=== PATIENT | male | born 1990 | race Caucasian/White ===

== ENCOUNTER 2020-08-19 06:32 | Emergency (ER) | payer OTHER, SELFPAY ==
[2020-08-19 06:33] VITALS: BP 154/94; PULSE 60; RESP 18; TEMP 36.1; O2SAT 97; BMI 39.1
--- NOTE | 2020-08-19 07:12 | EX.ED.VIS.EY ---
HPI History of Present Illness Chief Complaint: Eye Problem Informant: patient Narrative Narrative: Patient is a 29-year-old male presenting with left eye pain. Patient was using a Sukumar candle last night when he felt something go into his left eye. He states he was wearing his glasses at the time. States he feels like a piece of sand flew into his eye. He tried to flush it out immediately and then again this morning. When he continued to have foreign body sensation in his eye he came to emergency room. Denies any change in his vision. He has tearing. He believes his tetanus is up-to-date. No other complaints at this time. He does not wear any contact lenses. PFSH PFSH Allergy/AdvReac Type Severity Reaction Status Date / Time codeine AdvReac Vomiting Verified 08/19/20 06:35 Social History Smoking Status: Former smoker ROS ROS ED Constitutional Constitutional ED: Denies chills or fever(s) Eyes Eyes: Reports other Details: Left eye pain, foreign body sensation of the left eye ; Denies change in vision ENT ENT ED: Denies ear pain or sore throat Cardiovascular Cardiovascular: Denies chest pain Respiratory/Chest Respiratory/Chest: Denies dyspnea Gastrointestinal Gastrointestinal: Denies nausea or vomiting Musculoskeletal Musculoskeletal: Denies myalgias Integumentary Denies rash Neurologic Neurologic: Denies headache(s) EXAM Physical Exam Const Vital Signs: 08/19/20 06:33 Temperature 96.9 F L Temperature Source Temporal Pulse Rate 60 Respiratory Rate 18 Blood Pressure 154/94 H Blood Pressure Mean 114 Pulse Ox 97 Oxygen Delivery Method Room Air Positive well nourished and well developed General Appearance ED: well developed HEENT atraumatic Nose: external nose normal Eyes Periorbital: periorbital findings normal Eyelid: eyelids normal Conjunctiva: conjunctiva abnormal left (Tearing but no abnormal discharge) Details: injection and other Cornea: cornea abnormal Positive for left Cornea - Left Eye: Positive for abrasion and foreign body (sand under eyelid ) and fluorescein used Pupil: PERRL EOM: EOM abnormal Direct Ophthalmoscopy: normal light reflex Slit Lamp: slit lamp exam performed with fluorescein Neck supple Resp normal respiratory effort Cardio regular rate and regular rhythm Neuro oriented x3 and CN's II-XII intact bilaterally Sensorium / Orientation: alert Skin Lesions: no lesions Rashes: no rashes MDM MDM MDM Narrative Medical decision making narrative: Patient evaluated for pain to his left eye. He appears nontoxic and in no acute distress however he does appear uncomfortable secondary to irritation of his left eye. Patient does have abrasions noted to his cornea on fluorescein exam. When his eyelid is inverted I did find a small speck of sand. I suspect this is the culprit. Patient is treated symptomatically with tetracaine in the ER and started on erythromycin ointment. He is referred to ophthalmology for outpatient follow-up. He is counseled to avoid contact lenses (which she does not wear normally) will while his eye is healing. He is counseled on return precautions. Impression 1. Foreign body to the left eye 2. Corneal abrasion to the left eye Discharge Plan Triage Chief Complaint: Eye Problem ED Provider: Lisa Curtis Dx/Rx/DC Orders Instructions: ED Corneal Abrasion, ED Corneal Foreign Body, Removed Primary Care Provider: Care Physician,No Primary Referrals: Helder Rivera MD [STAFF PHYSICIAN] - Care Physician,No Primary [Primary Care Provider] - Disposition Disposition: Home, Self Care Discharge Date/Time: 08/19/20 08:38
[2020-08-19] MEDS: Fluorescein 1 MG STRIP 1 STRIP OPHTHALMIC (08:29)
[2020-08-19] MEDS: Tetracaine 0.5% Ophthalmic Bottle OPHTHALMIC (08:30)
[2020-08-19 08:36] VITALS: PULSE 71; RESP 16
--- NOTE | 2020-08-19 08:37 | ED.RN ---
THIS NURSE REVIEWED D/C INSTRUCTIONS WITH PT. PT VERBALIZED UNDERSTANDING OF INSTRUCTIONS. PT INFORMED THAT I NEEDED TO GET HIM SOME MEDICATION AND I WOULD BE RIGHT BACK. WHEN I RETURNED TO THE ROOM THE PT WAS GONE.
== END 2020-08-19 08:38 | disposition home or self-care (01) ==
PROVIDERS: Emergency Provider Emergency Medicine
DX: S05.02XA Injury of conjunctiva and corneal abrasion without foreign body, left eye, initial encounter (principal); T15.92XA Foreign body on external eye, part unspecified, left eye, initial encounter; X58.XXXA Exposure to other specified factors, initial encounter; Y93.9 Activity, unspecified; Y92.9 Unspecified place or not applicable; Z87.891 Personal history of nicotine dependence
CPT/HCPCS: 99283